=== PATIENT | female | born 1970 | race African-American/Black ===

== ENCOUNTER 2022-07-14 15:29 | Outpatient (CLI) | payer OTHER, SELFPAY ==
--- NOTE | ~2022-07-14 | CT_ITS ---
EXAMINATION: CT lung screening DATE: 07/14/2022 16:16 INDICATION: Personal history of nicotine dependence, current smoker with 40 pack year history TECHNIQUE: Computed tomography (CT) of the chest was performed without intravenous contrast. The dose -length product (DLP) was 65.27 mGy-cm. Automated exposure control and iterative reconstruction techn [employer] were employed. COMPARISON: None FINDINGS: There is moderate emphysema. Small lung nodules measure up to 3 mm in the lower lobes. The lungs are free of acute opacities. No pleural effusion or pneumothorax. No pathologically enlarged th oracic lymph nodes are identified. The heart size is normal. There is a 1.2 cm cyst of the right hepa tic lobe. There is a 1.5 cm cyst of the left kidney. There is mild thoracic spondylosis. Surgical brent nges are noted in the lower cervical spine. IMPRESSION: 1. Lung-RADS category 2: Benign appearance or behavior. Continue annual screening with noncontrast lo w-dose chest CT in 12 months. Reviewed, dictated and finalized at location D. IMPRESSION: 1. Lung-RADS category 2: Benign appearance or behavior. Continue annual screeni ng with noncontrast low-dose chest CT in 12 months.
== END 2022-07-14 15:30 | disposition home or self-care (01) ==
LOC: ANHIMG 15:32
PROVIDERS: PCP Nurse Practitioner; Visit Provider Nurse Practitioner
DX: Z12.2 Encounter for screening for malignant neoplasm of respiratory organs (principal); Z87.891 Personal history of nicotine dependence
CPT/HCPCS: 71271